=== PATIENT | female | born 1955 | race Caucasian/White ===

== ENCOUNTER 2022-11-11 02:37 | Emergency (ER) | payer OTHER, SELFPAY ==
--- NOTE | ~2022-11-11 | XR_ITS ---
Right Shoulder Technique: AP and axillary views were obtained. Clinical History: Pain Findings: No fracture or dislocation is seen. Osseous alignment is anatomic. There is mild AC joint d egenerative change. Glenohumeral joint is intact. Soft tissues are unremarkable. Impression: No fracture or dislocation. Mild AC joint degenerative change. Reviewed, dictated and finalized at location . Impression: No fracture or dislocation. Mild AC joint degenerative change.
--- NOTE | ~2022-11-11 | XR_ITS ---
Right Hand Technique: PA, oblique, and lateral views were obtained. Clinical History: Pain Findings: No acute fracture or dislocation is seen. Osseous alignment is anatomic. Joint spaces are p reserved. Soft tissues are unremarkable. Impression: Unremarkable right hand. Reviewed, dictated and finalized at location M. Impression: Unremarkable right hand.
--- NOTE | ~2022-11-11 | CT_ITS ---
CT Facial Bones and Cervical Spine Clinical Indication: Trauma Technique: Contiguous axial scans were obtained through the facial bones and cervical spine followed by coronal and sagittal reconstructions. Dose reduction technique was used on this scan by utilizing automated exposure control and iterative reconstruction technique. The dose-length product (DLP) was 183.49 mGy-cm. Findings: CT facial bones: Right nasal bone fracture present, minimally displaced. There is also probable focal angulated fracture of the vomer. The visualized paranasal sinuses are clear. Intraorbital soft tissu es appear normal. CT cervical spine: No acute fracture or subluxation evident. There is moderate degenerative disc narr owing from C3 through C7, with associated uncovertebral degenerative changes throughout these levels. There is probable mild canal stenosis at C3-C4. There is probable multilevel mild neural foraminal n arrowing with minimal facet joint degenerative changes present. No prevertebral soft tissue swelling. Impression: Minimally displaced fractures of the right nasal bone and vomer. No fracture or subluxation of the cervical spine. [id number] degenerative spondylosis. Reviewed, dictated and finalized at [facility]. Impression: Minimally displaced fractures of the right nasal bone and vomer. No fracture or subluxation of the cervical spine. [id number] degenerative spondylosis.
--- NOTE | ~2022-11-11 | CT_ITS ---
CT head without contrast Indication: Head injury COMPARISON: 07/29/2017 Technique: Serial scans were obtained through the brain without the administration of contrast. Dose reduction technique was used on this scan by utilizing automated exposure control and iterative recon struction technique. The dose-length product (DLP) was 756.67 mGy-cm. Findings: There is no evidence of intracranial hemorrhage, mass lesion, or acute infarct. 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 The ventricles and subarachnoid space s are dilated, consistent with minimal atrophy. Low attenuation regions are seen within the perivent ricular white matter bilaterally, likely representing changes from chronic microvascular ischemic dis ease. There is no evidence of edema, mass effect or midline shift. The visualized paranasal sinuses and mastoid air cells are clear. Impression: No intracranial hemorrhage, mass, or acute infarct. Stable chronic encephalomalacia in the anterior right temporal lobe. Atrophy and chronic white matter changes, as above. Reviewed, dictated and finalized at location . Impression: No intracranial hemorrhage, mass, or acute infarct. Stable chronic encephalomalacia in the anterior right temporal lobe. Atrophy and chronic white matter changes, as above.
[2022-11-11 02:39] VITALS: BP 172/83; PULSE 78; RESP 16; TEMP 36.3; O2SAT 100
--- NOTE | 2022-11-11 03:22 | ED.GENADULT ---
HPI - General Adult General Chief complaint: Fall Stated complaint: fall Time Seen by Provider: 11/11/22 02:58 History of Present Illness HPI narrative: Patient is a 67-year-old female who presents emergency department with chief complaint of nose injury. Patient reports that she tripped over her 100 pounds down and landed on her face. Patient also reports she has pain in her right shoulder and her right hand. Related Data Allergies Allergy/AdvReac Type Severity Reaction Status Date / Time No Known Allergies Allergy Unknown Verified 03/27/17 09:43 Review of Systems Review of Systems: A 10 system review of systems was completed on the patient and is negative except for what is stated in the HPI. Nursing and ancillary documentation was reviewed. Exam Narrative: GENERAL: Well-appearing, well-nourished, and in no acute distress. HEAD: Normocephalic, atraumatic. EYES: PERRLA and EOMI. ENT: Nares clear, no rhinorrhea or epistaxis. Mucous membranes moist. Bruising around nose NECK: Supple. CHEST: Clear to auscultation. No respiratory distress. HEART: Regular rate and rhythm. No murmur heard. Normal peripheral pulses. ABDOMEN: Soft, nontender, nondistended, normal active bowel sounds. EXTREMITIES: Normal range of motion. No edema. Mild tenderness to the dorsum of the right hand and mild tenderness in the right shoulder SKIN: Warm, dry, no rash. NEURO: No focal deficits. Alert and oriented x3. PSYCH: Normal mood and affect. Course Vital Signs Vital signs: Vital Signs Temperature 36.3 C L 11/11/22 02:39 Pulse Rate 78 11/11/22 02:39 Respiratory Rate 16 11/11/22 02:39 Blood Pressure 172/83 H 11/11/22 02:39 Pulse Oximetry 100 11/11/22 02:39 Oxygen Delivery Room Air 11/11/22 02:39 Temperature 36.3 C L 11/11/22 02:39 Pulse Rate 78 11/11/22 02:39 Respiratory Rate 16 11/11/22 02:39 Blood Pressure 172/83 H 11/11/22 02:39 Pulse Oximetry 100 11/11/22 02:39 Oxygen Delivery Room Air 11/11/22 02:39 Medical Decision Making [facility] Narrative Medical decision making narrative: Differential diagnosis includes intercranial hemorrhage, nasal bone fracture, facial trauma, cervical spine fracture Plan: X-rays were obtained of the patient's hand and shoulder that showed no evidence of fracture CT head CT facial bones and CT C-spine showed no acute intercranial pathology there is a minimally displaced nasal bone fracture Vital Signs Vital Signs: Vital Signs Temperature 36.3 C L 11/11/22 02:39 Pulse Rate 78 11/11/22 02:39 Respiratory Rate 16 11/11/22 02:39 Blood Pressure 172/83 H 11/11/22 02:39 Pulse Oximetry 100 11/11/22 02:39 Oxygen Delivery Room Air 11/11/22 02:39 Temperature 36.3 C L 11/11/22 02:39 Pulse Rate 78 11/11/22 02:39 Respiratory Rate 16 11/11/22 02:39 Blood Pressure 172/83 H 11/11/22 02:39 Pulse Oximetry 100 11/11/22 02:39 Oxygen Delivery Room Air 11/11/22 02:39 Discharge Plan Discharge Clinical Impression: Closed fracture nasal bone, Head injury, Contusion of right shoulder, Contusion of hand, right Patient Disposition: Home, Self-Care Condition: Stable Instructions: Antibiotic Form, Nasal Fracture (ED), Head Injury (ED), Contusion in Adults (ED) Follow-up/Referrals: Denton Diaz MD [Physician] - [facility],Adalberto Herrmann MD [Primary Care Provider] - Time of Disposition: 05:44
[2022-11-11 05:45] VITALS: BP 150/77; PULSE 65; RESP 16; O2SAT 99
== END 2022-11-11 05:45 | disposition home or self-care (01) ==
PROVIDERS: Emergency Provider Emergency Medicine; PCP Family Medicine
DX: S02.2XXA Fracture of nasal bones, initial encounter for closed fracture (principal); S40.011A Contusion of right shoulder, initial encounter; S60.221A Contusion of right hand, initial encounter; M47.812 Spondylosis without myelopathy or radiculopathy, cervical region; W01.0XXA Fall on same level from slipping, tripping and stumbling without subsequent striking against object, initial encounter
CPT/HCPCS: 70450; 70486; 72125; 73030; 73130; 99284

== ENCOUNTER → 2024-05-20 11:42 | Outpatient (REF) | payer OTHER, SELFPAY ==
--- OUTSIDE RECORDS SUMMARY | 2024-05-20 12:24 | XMS_ITS | Clinical Summary ---
Author Organization [facility] Address [address] [place] [address] Care Team Providers Care Oyster Planter Name Role Phone Adalberto Wood MD Primary Care Provider [phone] Allergies No known active allergies Medications multivitamin capsule Take 1 capsule by mouth daily Calcium 300 mg + Vitamin D 1000 Total 1000+400 international units = 1400 international units daily Active denosumab (PROLIA) 60 mg/mL syringe Inject under the skin once Active MAGNESIUM CHLORIDE ORAL Take by mouth Ac tive cholecalcifero l (VITAMIN D-3) 400 unit capsule Active ALPRAZolam (XANAX) 0.5 mg tablet TAKE 1 TABLET(0.5 MG) BY MOUTH EVERY 8 HOURS NEEDED FOR ANXIETY 30 tablet 2 3 Active rosuvastatin (CRESTOR) 10 mg tablet TAKE 1 TABLET(10 MG) BY MOUTH DAILY 90 tablet 1 4 Active celecoxib (CeleBREX) 200 mg capsule TAKE 1 CAPSULE(200 MG) BY MOUTH TWICE DAILY 60 capsule 1 4 Active Active Problems Problem Noted Date Diagnosed Date Medicare annual wellness visit, subsequent 02/27 Chronic bilateral low back pain 11/12/2018 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 Surgical incision healing well. She has no back pain. - Continue vancomycin and cefepime to complete 6 weeks of therapy. FIRM STOP on 12/13/18 as she will have completed 6 weeks of therapy at that time. PICC line to be pulled when IV antibiotics are complete - Discussed with patient that she will not require tower operator oral antibiotic suppression as her remaining hardware did not appear to be involved. She will monitor closely for signs/symptoms of infection when antibiotics are discontinued and report to ID if she has any issues - Discussed the rational for treatment, culture results, risk of recurrent infection, signs/symptoms of recurrent infection, and to contact ID with concerns Assessment & Plan (11/05/2018 1:09 PM CDT): 63 yo female with h/o several spinal surgeries and meningioma p/w spinal hardware infection s/p I+D and hardware removal.She is on broad spectrum antibiotics with vancomycin and cefepime while awaiting culture results. Cx currently NGTD. VT therapeutic. Discussion with surgeon revealed that HW that was involved in the infection was removed. He thought the HW in the lower spine was not involved. Recommendations: - continue vanc/cefepime for culture negative infection. Given that her cr clearance is 52.9, would decrease her cefepime dose to 1g IV q 12 hours (done) - pt has been afebrile, so okay to place picc line as she will need fci IV abx x 6 weeks. Per discussion with the surgery team, no plan for tower operator suppression at this time. - cbc w/diff, cmp and vanc trough 2x per week. - ID will formally sign off but continue to follow the pt peripherally while in house. - Please call with any questions or concerns. - See plan of care note dated 11/05/18 for detailed recommendations. Age-related osteoporosis wit hout current pathological fracture 05/31/2018 History of meningioma 03/19/2018 Posterior vitreous detachment of left eye 2017 Osteoporosis 11/17/2016 Spinal meningioma 09/06/2012 Osteoarthritis of thoracic spine with myelopathy 08/20/2012 Resolved Problems Problem Noted Date Diagnosed Date Resolved Date COVID-19 virus infection 07/25/202201/2023 skilled nursing current use of antibiotics 11/30/2018 12/30/2020 Assessment & Plan (11/30/2018 2:07 PM CDT): - Weekly CBC and LFTs; twice weekly vanc trough and BMP while on IV antibiotics - Discussed with patient the side effects of tower operator antibiotics and monitoring parameters. - PICC line care continued; removed PICC when IV antibiotics are complete. Tingling of skin 08/03/2012 11/17/2022 Encounters Date Type Department Care Team Description 05/13/2024 2:15 PM DRY CLEANING MACHINE OPERATOR HELPER - 05/13/2024 11:59 PM DRY CLEANING MACHINE OPERATOR HELPER Hospital Encounter [facility] [address] [address] Abnormal mammogram of left breast Discharge Disposition: Discharge to home or self care 05/13/2024 2:15 PM DRY CLEANING MACHINE OPERATOR HELPER - 05/13/2024 11:59 PM DRY CLEANING MACHINE OPERATOR HELPER Hospital Encounter [facility] [address] [address] Abnormal mammogram of left breast Discharge Disposition: Discharge to home or self care 05/08/2024 Telephone [facility] at [address] [phone] Adalberto Wood MD [facility] 05/07/2024 11:15 AM DRY CLEANING MACHINE OPERATOR HELPER - 05/07/2024 11:59 PM [facility] Hospital Encounter [facility] [address] [place] [address] Screening mammogram, encounter for Discharge Disposition: Discharge to home or self care 03/29/2024 10:45 AM DRY CLEANING MACHINE OPERATOR HELPER Office Visit [facility] [address] [place] [phone] Rajiv Chicas DO 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 (Primary Dx); Acute pain of left shoulder; Abnormal x-ray; Other closed fracture of shaft of left humerus with routine healing, subsequent encounter 03/29/2024 Telephone [facility] at [address] [phone] Adalberto Wood MD Referral Request 03/06/2024 2:00 PM DRY CLEANING MACHINE OPERATOR HELPER - 03/06/2024 11:59 PM DRY CLEANING MACHINE OPERATOR HELPER Hospital Encounter [address] [address] Age-related osteoporosis without current pathological fracture (Primary Dx) Discharge Disposition: Discharge to home or self care 03/06/2024 Orders Only [address] [address] Berenice Almanza, RN 03/01/2024 Telephone [facility] at [address] [phone] Adalberto Wood MD Test Results 02/28/2024 10:45 AM DRY CLEANING MACHINE OPERATOR HELPER Office Visit [facility] at [address] [phone] Adalberto Wood MD Medicare annual wellness visit, subsequent (Primary Dx); Mixed hyperlipidemia; Colon cancer screening 02/27/2024 Orders Only [address] [address] Berenice Almanza, RAFI 02/27/2024 Telephone [facility] at [address] [place] [phone] Adalberto Wood MD Medical Question/Miscellaneou s 02/23/2024 Telephone [facility] at [address] [phone] Adalberto Wood MD Test Results 02/22/2024 Orders Only [address] [address] Berenice Almanza, RN 02/20/2024 2:37 PM DRY CLEANING MACHINE OPERATOR HELPER - 02/20/2024 11:59 PM DRY CLEANING MACHINE OPERATOR HELPER Hospital Encounter [facility] [address] [place] [address] Acute pain of left shoulder Discharge Disposition: Discharge to home or self care 02/20/2024 1:30 PM DRY CLEANING MACHINE OPERATOR HELPER Office Visit [facility] at [address] [place] [address] Adalberto Wood MD Acute pain of left shoulder (Primary Dx); Fall, initial encounter; Postmenopausal from Last 3 Months Immunizations Name Administration Dates Next Due COVID-19 MRNA (MODERNA) .5 M L (50 MCG) VACCINE (12 YEARS AND UP) 12/18/2023 Influenza, Quad, Adjuvantate d, Intramuscular 12/26/2022,12/24/2019 Influenza, Quadrivalent, Hig h Dose, Preservative Free, Intrr 12/17/2021,12/31/2020 Influenza, Quadrivalent, Spl it, Preservative Free, Intramuscular 01/08/2014 Influenza, Trivalent, Cell Culture-based MDCK, Preservative Free, Antibiotic Free, Intramuscular 03/14/2013 Influenza, Trivalent, High D ose, Split, Preservative Free, Intramuscular 12/18/2023,01/02/2019,01/02/2019 Influenza, Trivalent, IM (MDV) 03/19/2018,2016 Influenza, Trivalent, Preser vative Free, Intramuscular 12/24/2019,01/23/2016,02/13/2015,01/08,01/08/2013 Influenza, Unspecified 02/20/2024,2022,01/08/2022,01/02 Pneumococcal Conjugate Pcv20 12/18/2023 RSV, Bivalent, Protein Subun it Rsvpref, Diluent (Abrysvo) 12/26/2022 Sars-cov-2 Covid-19 Mrna, Bi valent, Original/omicron Ba.1 12/26/2022 Tdap 03/19/2018 ZOSTER Recombinant 02/25/2023,12/26/2022 Surgical History Surgery Date Site/Laterality Comments PUNCTURE CERVICAL W INJECTION 08/07/2012 N/A FOOT SURGERY HAND SURGERY BACK SURGERY x5 SPINE SURGERY 1988 Medical History Medical History Date Comments Osteoporosis Pneumonia Family History Medical History Relation Name Comments Cancer Brother Selvin Cancer - (Added by TW Conv) Cancer Sister Hazel Anesthesia problems Neg Hx Breast cancer Neg Hx Hip fracture Neg Hx Osteoporosis Neg Hx Scoliosis Neg Hx Relation Name Status Comments Brother Selvin Mother Sister Hazel Social History Tobacco Use Types Packs/Day Years Used Date Smoking Tobacco: Former Cigarettes 1 4 0 04/10/1974 - 1978 Smokeless Tobacco: Never Alcohol Use Standard Drinks/Week Comments Yes 0 (1 standard drink = 0.6 oz pur e alcohol) ONCE A WEEK AUDIT-C Answer Date Recorded Q1: How often do you have a drink containing alc ohol? Monthly or less 02/20/2024 Q2: How many drinks containi ng alcohol do you have on a typical day when you are drinking? 1 or 2 02/20/2024 Frequency of Binge Drinking Not on file 02/08 PHQ-2 Answer Date Recorded PHQ-2 Total Score (If total score is 3 or more points, staff should administer the PHQ-9) 0 02/21/2024 Comments No Sex and Gender Information Value Date Recorded Sex Assigned at Not on file Legal Sex Female 7:37 PM DRY CLEANING MACHINE OPERATOR HELPER Gender Identity Female 05/15/2021 12:01 AM DRY CLEANING MACHINE OPERATOR HELPER Sexual Orientation Not on file Occupation Industry Job Start Date Job End Date SELF EMPLOYED Not on file Not on file Not on file Obstetrics History Para Term AB IAB SAB Ectopic Multiple Livin g Live Births 0 0 0 0 0 0 0 0 0 0 0 Last Filed Vital Signs Vital Sign Reading Time Taken Comments Blood Pressure 140/81 03/06/2024 2:10 PM DRY CLEANING MACHINE OPERATOR HELPER Pulse 77 03/06/2024 2:10 PM DRY CLEANING MACHINE OPERATOR HELPER Temperature 36.3 C (97.3 F) 03/06/2024 2:10 PM DRY CLEANING MACHINE OPERATOR HELPER Respiratory Rate 18 03/06/2024 2:10 PM DRY CLEANING MACHINE OPERATOR HELPER Oxygen Saturation 100% 03/06/2024 2:10 PM DRY CLEANING MACHINE OPERATOR HELPER Inhaled Oxygen Concentration - - Weight 52.8 kg (116 lb 8 oz) 02/28/2024 10:51 AM DRY CLEANING MACHINE OPERATOR HELPER Height 155.6 cm (5' 1.25 ) 02/28/2024 10:[address] Body Mass Index 21.83 02/28/2024 10:51 AM DRY CLEANING MACHINE OPERATOR HELPER Plan of Treatment Health Maintenance Due Date Last Done Comments Colon Cancer Screening-Colonoscopy 1955 Hepatitis C Screening 1955 Hepatitis B Screening 1971 Osteoporosis Screening-Bone Density Scan 01/25/2025 01/25/2023, 01/12/2022, 01/06/2021, Additional history exists Depression Screening 02/27/2025 02/28/2024, 06/23/2022, 12/30/2020 Fall Risk Assessment 02/27/2025 02/28/2024, 06/23/2022, 12/30/2020 Well Visit 65+ 02/27/2025 02/28/2024, 06/08, 12/30/2020 Breast Cancer Screening-Mammogram 05/07/2025 025, 08/23/2021 DTaP/Tdap/Td Vaccine (2 - Td or Tdap) 03/19/2028 03/19/2018 Zoster Vaccine Completed 02/25/2023, 12/26/2022 Covid-19 Vaccine Completed 12/18/2023, , 12/26/2022, Additional history exists Pneumococcal vaccine 65+ Completed 12/18/2023 Influenza Vaccine Completed 02/20/2024, , 12/26/2022, Additional history exists Medical Devices Implanted Type Area Medical Insurance Claims Specialist Device Identifier Shelf Expiration Date Model / Serial / Lot Forearm Hardware Forearm Spinal Hardware Thoracic-Lum bar Spine L3-L5 Fusion- [id number] Implanted:03/10 (Quantity not on file) Lumbar-Sacra l Spine Procedures Procedure Name Priority Date/Time Associated Diagnosis Comments US BREAST LEFT LIMITED Schedule Routine, Read Routine (OP Routine) 05/13/2024 3:01 PM DRY CLEANING MACHINE OPERATOR HELPER Abnormal mammogram of left breast DIAGNOSTIC MAMMOGRAM LEFT W ONIEL Schedule Routine, Read Routine (OP Routine) 05/13/2024 2:28 PM DRY CLEANING MACHINE OPERATOR HELPER Abnormal mammogram of left breast SCREENING MAMMOGRAM BILATERAL W ONIEL Schedule Routine, Read Routine (OP Routine) 05/07/2024 11:25 AM DRY CLEANING MACHINE OPERATOR HELPER Screening mammogram, encounter for LIPID PANEL Routine 02/29/2024 10:12 AM DRY CLEANING MACHINE OPERATOR HELPER Mixed hyperlipidemia COMPREHENSIVE METABOLIC PANEL Routine 02/29/2024 10:12 AM DRY CLEANING MACHINE OPERATOR HELPER Mixed hyperlipidemia CBC WITH AUTO DIFFERENTIAL Routine 02/29/2024 10:12 AM DRY CLEANING MACHINE OPERATOR HELPER Mixed hyperlipidemia XR SHOULDER LEFT 2 OR MORE VIEWS Schedule Routine, Read Routine (OP Routine) 02/20/2024 2:42 PM DRY CLEANING MACHINE OPERATOR HELPER Acute pain of left shoulder DEXA TBS AXIAL SKELETON BONE DENSITY 1 OR MORE SITES Schedule Routine, Read Routine (OP Routine) 01/25/2023 11:30 AM CDT Age-related osteoporosis without current pathological fracture from Last 3 Months or Most Recently Relevant to Health Maintenance Results * US Breast Left Limited (05/13/2024 3:01 PM DRY CLEANING MACHINE OPERATOR HELPER) Anatomical Region Laterality Modality Breast Left Ultrasound 05/13/2024 5:11 PM DRY CLEANING MACHINE OPERATOR HELPER Impressions 05/13/2024 5:11 PM DRY CLEANING MACHINE OPERATOR HELPER The questioned area on the mammogram very likely relates to the dilated ducts seen sonographically. Six-month follow-up left mammogram with possible left breast ultrasound is recommended. OVERALL FINAL ASSESSMENT: BI-RADS 3 - Probably benign findings. Short-term follow-up is recommended. Electronically signed by: Patricia Carlisle M.D. Narrative 05/13/2024 5:11 PM DRY CLEANING MACHINE OPERATOR HELPER EXAMINATION: LEFT DIGITAL DIAGNOSTIC MAMMOGRAM AND DIGITAL BREAST TOMOSYNTHESIS; LEFT BREAST SONOGRAM HISTORY: Additional imaging COMPARISON: May 07, 2024 TECHNIQUE: Full field digital mammographic views of the left breast(s) were performed, including computer aided detection (CAD) and digital breast tomosynthesis (DBT). Directed ultrasound evaluation of the left breast(s) was performed. BREAST PARENCHYMAL COMPOSITION: The breasts are heterogeneously dense, which may obscure small masses. MAMMOGRAM FINDINGS: There is a focal asymmetry at 3-4 o'clock in the mid to posterior depth. It has tapered ends anteriorly and posteriorly. There are other similar appearing areas/structures elsewhere in the breast. No suspicious calcifications are seen. There is no unexplained architectural distortion. There is no skin thickening seen. There are no mammographically abnormal lymph nodes seen in the axillae or elsewhere. ULTRASOUND FINDINGS: Sonography through the lateral left breast demonstrates no cystic or solid masses. There is significant ductal ectasia throughout. This corresponds to the mammographic appearance of ductal ectasia. us Adalberto Wood MD IMG MAMMO PROCEDURES Final Re sult * Diagnostic Mammogram Left W Oniel (05/13/2024 2:28 PM DRY CLEANING MACHINE OPERATOR HELPER) Anatomical Region Laterality Modality Breast Left Mammography 05/13/2024 5:11 PM DRY CLEANING MACHINE OPERATOR HELPER Impressions 05/13/2024 5:11 PM DRY CLEANING MACHINE OPERATOR HELPER The questioned area on the mammogram very likely relates to the dilated ducts seen sonographically. Six-month follow-up left mammogram with possible left breast ultrasound is recommended. OVERALL FINAL ASSESSMENT: BI-RADS 3 - Probably benign findings. Short-term follow-up is recommended. Electronically signed by: Patricia Carlisle M.D. Narrative 05/13/2024 5:11 PM DRY CLEANING MACHINE OPERATOR HELPER EXAMINATION: LEFT DIGITAL DIAGNOSTIC MAMMOGRAM AND DIGITAL BREAST TOMOSYNTHESIS; LEFT BREAST SONOGRAM HISTORY: Additional imaging COMPARISON: May 07, 2024 TECHNIQUE: Full field digital mammographic views of the left breast(s) were performed, including computer aided detection (CAD) and digital breast tomosynthesis (DBT). Directed ultrasound evaluation of the left breast(s) was performed. BREAST PARENCHYMAL COMPOSITION: The breasts are heterogeneously dense, which may obscure small masses. MAMMOGRAM FINDINGS: There is a focal asymmetry at 3-4 o'clock in the mid to posterior depth. It has tapered ends anteriorly and posteriorly. There are other similar appearing areas/structures elsewhere in the breast. No suspicious calcifications are seen. There is no unexplained architectural distortion. There is no skin thickening seen. There are no mammographically abnormal lymph nodes seen in the axillae or elsewhere. ULTRASOUND FINDINGS: Sonography through the lateral left breast demonstrates no cystic or solid masses. There is significant ductal ectasia throughout. This corresponds to the mammographic appearance of ductal ectasia. Adalberto Wood MD [facility] MAMMO PROCEDURES Final Re sult * (ABNORMAL) Screening Mammogram Bilateral W Oniel (05/07/2024 11:25 AM DRY CLEANING MACHINE OPERATOR HELPER) Anatomical Region Laterality Modality Breast Bilateral Mammography Impressions 05/07/2024 12:07 PM DRY CLEANING MACHINE OPERATOR HELPER BI-RADS ATLAS category (overall): 0 - Incomplete: Needs Additional Imaging Evaluation 1. Indeterminate left breast finding as above. Further evaluation with diagnostic left mammography and possible diagnostic left breast ultrasound is recommended. 2. No mammographic evidence of malignancy in the right breast. Routine screening mammography of the right breast is recommended in 1 year. The patient has been or will be contacted. Narrative 05/07/2024 12:07 PM DRY CLEANING MACHINE OPERATOR HELPER Screening Mammogram Bilateral W Oniel: 05/07/24 The study was acquired using full field digital technology and interpreted from soft copy. 2D digital mammographic views, as well as 3D digital tomosynthesis were performed in the CC and MLO projections. CLINICAL: Screening mammogram, encounter for. No relevant medical history has been documented for this patient. History of breast cancer in Neg Hx. COMPARISON: New Baseline Screening Mammography. No prior mammography is available for comparison. BREAST TISSUE: The breasts are heterogeneously dense, which may obscure small masses. FINDINGS: There are benign calcifications in both breasts. There is a focal asymmetry at the 4 o'clock position of the left breast posteriorly. No other suspicious masses, suspicious calcifications, or other suspicious findings are seen within either breast. us Adalberto Wood MD IMG MAMMO PROCEDURES Final Re sult * (ABNORMAL) CBC with auto differential (02/29/2024 10:12 AM DRY CLEANING MACHINE OPERATOR HELPER) WBC 7.7 3.8 - 10.8 Thousand/u L [facility] RBC, POC 4.15 3.80 - 5.10 Million/uL [facility] Hgb 12.8 11.7 - 15.5 g/dL [facility] Hct 40.2 35.0 - 45.0 % [facility] MCV 96.9 80.0 - 100.0 fL [facility] MCH 30.8 27.0 - 33.0 pg [facility] MCHC 31.8(L) 32.0 - 36.0 g/dL [facility] Comment: For adults, a slight decrease in the calculated MCHC value (in the range of 30 to 32 g/dL) is most likely not clinically significant; however, it should be interpreted with caution in correlation with other red cell parameters and the patient's clinical condition. Rdw 12.4 11.0 - 15.0 % [facility] Platelets 211 140 - 400 Thousand/u L [facility] MPV 9.9 7.5 - 12.5 fL [facility] Neutrophils, abs 5,213 1,500 - 7,800 cells/uL [facility] Lymphocytes, abs 1,679 850 - 3,900 cells/uL [facility] Monocyte abs 647 200 - 950 cells/uL [facility] Eosinophils, abs 100 15 - 500 cells/uL [facility] Basophils, abs 62 0 - 200 cells/uL [facility] Neutrophils 67.7 % [facility] Lymphocyte pct 21.8 % [facility] Monocytes 8.4 % [facility] Eosinophils 1.3 % [facility] Basophils 0.8 % [facility] Blood 02/29/2024 10:1 2 AM DRY CLEANING MACHINE OPERATOR HELPER 02/29/2024 10:13 AM DRY CLEANING MACHINE OPERATOR HELPER Adalberto Wood MD LAB BLOOD ORDERABLES Final Re sult [facility] [address] [place] [address] * Lipid panel (02/29/2024 10:12 AM DRY CLEANING MACHINE OPERATOR HELPER) Cholesterol 193 <200 mg/dL [facility] HDL 80 > OR = 50 mg/dL [facility] Triglycerides 93 <150 mg/dL [facility] LDL 94 mg/dL (calc) [facility] Comment: Reference range: <100 Desirable range <100 mg/dL for primary prevention; <70 mg/dL for patients with CHD or diabetic patients with > or = 2 CHD risk factors. LDL-C is now calculated using the Beryl calculation, which is a validated novel method providing better accuracy than the Friedewald equation in the estimation of LDL-C. Jomar LITTLE et al. LANA. 2013;310(19): 6428-6301 (http://education.Naroomi.Specle/faq/LWO153) Chol/HDL ratio 2.4 <5.0 (calc) [facility] Non-HDL, (LDL+VLDL) 113 <130 mg/dL (calc) [facility] Comment: For patients with diabetes plus 1 major ASCVD risk factor, treating to a non-HDL-C goal of <100 mg/dL (LDL-C of <70 mg/dL) is considered a therapeutic option. Blood 02/29/2024 10:1 2 AM DRY CLEANING MACHINE OPERATOR HELPER 02/29/2024 10:13 AM DRY CLEANING MACHINE OPERATOR HELPER us Adalberto Wood MD LAB BLOOD ORDERABLES Final Re sult [facility] [address] [place] [address] * (ABNORMAL) Comprehensive metabolic panel (02/29/2024 10:12 AM DRY CLEANING MACHINE OPERATOR HELPER) Glucose 94 65 - 99 mg/dL [facility] Comment: Fasting reference interval BUN 20 7 - 25 mg/dL [facility] Creatinine 0.73 0.60 - 1.00 mg/dL [facility] eGFR 88 > OR = 60 mL/min/1.7 3m2 [facility] BUN/creat ratio SEE NOTE: 6 - 22 (calc) [facility] Comment: Not Reported: BUN and Creatinine are within reference range. Sodium 139 135 - 146 mmol/L [facility] Potassium, pl 4.7 3.5 - 5.3 mmol/L [facility] Chloride 100 98 - 110 mmol/L [facility] CO2 31 20 - 32 mmol/L [facility] Calcium 10.5(H) 8.6 - 10.4 mg/dL [facility] Protein, sr 7.5 6.1 - 8.1 g/dL [facility] Albumin 4.6 3.6 - 5.1 g/dL [facility] GLOBULIN 2.9 1.9 - 3.7 g/dL (calc) [facility] Alb/glob ratio 1.6 1.0 - 2.5 (calc) [facility] Bilirubin, total 0.5 0.2 - 1.2 mg/dL [facility] Alk phos 36(L) 37 - 153 U/L [facility] AST 20 10 - 35 U/L [facility] ALT (SGPT) 16 6 - 29 U/L [facility] Blood 02/29/2024 10:1 2 AM DRY CLEANING MACHINE OPERATOR HELPER 02/29/2024 10:13 AM DRY CLEANING MACHINE OPERATOR HELPER us Adalberto Wood MD LAB BLOOD ORDERABLES Final Re sult [facility] [id number] [place] [address] * XR Shoulder Left 2 or More Views (02/20/2024 2:42 PM DRY CLEANING MACHINE OPERATOR HELPER) Anatomical Region Laterality Modality Upper Extremities, Shoulder Left Comp uted Radiography 02/23/2024 1:41 PM DRY CLEANING MACHINE OPERATOR HELPER Narrative 02/23/2024 1:43 PM DRY CLEANING MACHINE OPERATOR HELPER EXAM DESCRIPTION: XR SHOULDER LEFT 2 OR MORE VIEWS REASON FOR STUDY: pain General shoulder pain since dog pulled arm and pt fell 02-19-24 FINDINGS: Four views submitted without comparison. Old healed, displaced left humeral midshaft fracture is present. There is mild glenohumeral and acromioclavicular joint osteoarthritis. There is mild superior subluxation of the humeral head. Old granulomatous disease is noted. IMPRESSION: Old healed, displaced left humeral midshaft fracture. Mild left glenohumeral and acromioclavicular joint osteoarthritis. Mild superior subluxation of the humeral head, which can be associated with rotator cuff pathology. THIS IS AN ELECTRONICALLY VERIFIED FINAL REPORT 02/23/2024 1:43 PM - Electronically signed by Jonah Reyes M.D. T: Report ID: [id number] Reading Location: [id number] Procedure Note Jonah Reyes MD - 02/23/2024 EXAM DESCRIPTION: XR SHOULDER LEFT 2 OR MORE VIEWS REASON FOR STUDY: pain General shoulder pain since dog pulled arm and pt fell 02-19-24 FINDINGS: Four views submitted without comparison. Old healed, displaced left humeral midshaft fracture is present. There is mild glenohumeral and acromioclavicular joint osteoarthritis. There ismild superior subluxation of the humeral head. Old granulomatous disease isnoted. IMPRESSION: Old healed, displaced left humeral midshaft fracture. Mild left glenohumeral and acromioclavicular joint osteoarthritis. Mild superior subluxation of the humeral head, which can be associatedwith rotator cuff pathology. THIS IS AN ELECTRONICALLY VERIFIED FINAL REPORT 02/23/2024 1:43 PM - Electronically signed by Jonah Reyes M.D. T: Report ID: [id number] Reading Location: [id number] Adalberto Wood MD IMG XR PROCEDURES Final Resul t * Dexa TBS Axial Skeleton Bone Density 1 or more sites (01/25/2023 11:30 AM CDT) Anatomical Region Laterality Modality Wrist, Body N/A Radiographic Justina ging Narrative 01/26/2023 9:50 AM CDT Patient Name: Dora Hogan Date of : 1955 Date of scan: 01/25/2023 Bone mineral density was performed on a HoloModusly Discovery Densitometer. Based on machine cross-calibration and precision studies the least significant changes of this densitometer is 0.024 g/cm2 at the spine, 0.020 g/cm2 at the total proximal femur, and 0.014g/cm2 at the forearm. HISTORY: This is a 67 y.o. postmenopausal female with a history of osteoporosis. She reports that she quit smoking about 44 years ago. Her smoking use included cigarettes. She started smoking about 48 years ago. She smoked an average of 1 pack per day. She has never used smokeless tobacco. Currently on treatment with calcium, vitamin D, and denosumab (Prolia) and current complaint of arm pain, back pain, neck pain, and leg pain. INDICATIONS: Menopause status, treatment monitoring, history of prior wrist fracture, and history of osteoporosis. FINDINGS: BONE MINERAL DENSITY OF THE PROXIMAL FEMUR Bone Mineral Density (BMD) of the left hip total was found to be 0.690 gm/cm2. This corresponds to a T-score standard deviations from the mean of young adults of -2.1. Femoral neck is 0.684 gm/cm2 with a T-score (standard deviations from the mean of young adults) of -1.5. When compared to the previous study of 01/12/2022 there has been no significant changes in bone density. BONE MINERAL DENSITY OF THE FOREARM Bone Mineral density (BMD) of the right proximal 1/3 of the radius measures 0.489 gm/cm2. This corresponds to a T-score (standard deviations from the mean of young adults) of -3.4. When compared to the previous study of 01/12/2022 there has been no significant changes in bone density. A forearm bone density study was performed instead of a spine study because of presence of surgical hardware SUMMARY: Bone mineral density shows evidence of osteoporosis and marked increase risk of fracture. There has been no significant changes in bone density since previous measurement. The lumbar spine Trabecular Bone Score TBS was not obtained due to the bone mineral density of the spine not being acquired. ADDITIONAL COMMENTS: Postmenopausal Women and Men Over 50: Diagnostic criteria: Osteoporosis: BMD at or below -2.5 T-score; Osteopenia (low bone mass): BMD between -1.0 and -2.5 T-score. If the patient has a history of a fragility fracture, a fracture that occurred with trauma equivalent to a fall from a standing position or less, then the diagnosis is osteoporosis regardless of bone density. The history and data sections of the bone mineral density scan were prepared by Vandana Zhu (R)(CBDT) who is accredited by the International Society of Clinical Densitometry. The overall patient assessment and scan interpretation were performed by Kavita Armenta M.D. who is certified by the International Society of Clinical Densitometry. [id number] Kavita Armenta MD IMG DXA PROCEDURES Final Resu lt from Last 3 Months or Most Recently Relevant to Health Maintenance Insurance [facility] Advance Directives For more information, please contact: [phone] Documents on File Type Date Recorded Patient Senior Quality Control Technician Expl anation ADVANCE DIRECTIVE 12/31/2020 * Full Code (Latest Code Status on File) Date Activated Date Inactivated Comments 11/01/2018 2:32 PM 11/06/2018 8:28 PM Care Teams Oyster Planter Relationship Specialty Start Date End Date Adalberto Wood MD PCP - General Family Medicine 05/30/18
--- OUTSIDE RECORDS SUMMARY | 2024-05-20 12:24 | XMS_ITS | Encounter Summary ---
Author Organization [facility] Facility Care Team Providers Care Blogs Manager Name Role Phone Adalberto Wood MD Primary Care Provider [phone] Lorena Caputo RN Unavailable [phone] Sunita Maradiaga MA Unavailable [phone] Encounter Details Date Type Department Care Team (Latest Contact Info) Description 03/28/2018 Orders Only [facility] CLINCON[facility] ProviderEbony MD [address] [place] [id number] Social History Tobacco Use Types Packs/Day Years Used Date Smoking Tobacco: Former Smokeless Tobacco: Never Comments Unknown Sex and Gender Information Value Date Recorded Sex Assigned at Not on file Legal Sex Female 7:37 PM OUTSIDE MEDICAL SALES REPRESENTATIVE Gender Identity Female 05/15/2021 12:01 AM OUTSIDE MEDICAL SALES REPRESENTATIVE Sexual Orientation Not on file documented as of this encounter Plan of Treatment Not on file documented as of this encounter Procedures Procedure Name Priority Date/Time Associated Diagnosis Comments SCAN - LABS 03/29/2018 12:00 AM OUTSIDE MEDICAL SALES REPRESENTATIVE documented in this encounter Results * SCAN - LABS (03/29/2018 12:00 AM OUTSIDE MEDICAL SALES REPRESENTATIVE) Narrative 03/29/2018 12:00 AM OUTSIDE MEDICAL SALES REPRESENTATIVE Ordered by an unspecified provider. Historical Provider Final Res ult documented in this encounter Visit Diagnoses Not on filedocumented in this encounter Care Teams Blogs Manager Relationship Specialty Start Date End Date Adalberto Wood MD PCP - General Family Medicine 05/30/18 Lorena Caputo, RN Brim Stretcher 11/07/18 11/07/18 Sunita Maradiaga MA [address] [place] [address] [address] [place] [id number] ACO Care Last Model Department Supervisor 11/14/22 11/14/22 documented as of this encounter
--- OUTSIDE RECORDS SUMMARY | 2024-05-20 12:24 | XMS_ITS | Encounter Summary ---
Author Organization [facility] Care Team Providers Care Machine Designer Name Role Phone Adalberto Wood MD Primary Care Provider [phone] Lorena Caputo RN Unavailable [phone] Sunita Maradiaga MA Unavailable [phone] Encounter Details Date Type Department Care Team (Latest Contact Info) Description 03/19/2018 Orders Only [facility] CLINCONV ProviderEbony MD [address] [employer], [place] [id number] Social History Tobacco Use Types Packs/Day Years Used Date Smoking Tobacco: Former Smokeless Tobacco: Never Comments Unknown Sex and Gender Information Value Date Recorded Sex Assigned at Not on file Legal Sex Female 7:37 PM HEAD OF MATHEMATICS Gender Identity Female 05/15/2021 12:01 AM HEAD OF MATHEMATICS Sexual Orientation Not on file documented as of this encounter Plan of Treatment Not on file documented as of this encounter Procedures Procedure Name Priority Date/Time Associated Diagnosis Comments PROCEDURE - RESULT 03/19/2018 12 :00 AM HEAD OF MATHEMATICS CARDIOLOGY REPORT 03/19/2018 12: 00 AM HEAD OF MATHEMATICS documented in this encounter Results * PROCEDURE - RESULT (03/19/2018 12:00 AM HEAD OF MATHEMATICS) Narrative 03/19/2018 12:00 AM HEAD OF MATHEMATICS Ordered by an unspecified provider. Historical Provider Final Res ult * CARDIOLOGY REPORT (03/19/2018 12:00 AM HEAD OF MATHEMATICS) Anatomical Region Laterality Modality Other Narrative 03/19/2018 12:00 AM HEAD OF MATHEMATICS Ordered by an unspecified provider. us Historical Provider [facility] GALEANO Final Result documented in this encounter Visit Diagnoses Not on filedocumented in this encounter Care Teams Machine Designer Relationship Specialty Start Date End Date Adalberto Wood MD PCP - General Family Medicine 05/30/18 Lorena Caputo, RN Print Developer 11/07/18 11/07/18 Sunita Maradiaga MA [address] [place] [address] [address] [place] [address] ACO Care Thread Roller 11/14/22 11/14/22 documented as of this encounter
--- OUTSIDE RECORDS SUMMARY | 2024-05-20 12:24 | XMS_ITS | Referral Summary ---
Author Organization [facility] Address [address] [place] [address] Care Team Providers Care Brass Bobbin Winder Name Role Phone Adalberto Wood MD Primary Care Provider [phone] Encounters Date Type Department Care Team Description 05/13/2024 2:15 PM NURSING STAFFING COORDINATOR - 05/13/2024 11:59 PM NURSING STAFFING COORDINATOR Hospital Encounter [facility] Medical Office [facility] 1 [facility] [address] [place] [address] [address] [place] [address] Abnormal mammogram of left breast Discharge Disposition: Discharge to home or self care 05/13/2024 2:15 PM NURSING STAFFING COORDINATOR - 05/13/2024 11:59 PM NURSING STAFFING COORDINATOR Hospital Encounter [facility] Medical Office [facility] [address] [place] [address] Abnormal mammogram of left breast Discharge Disposition: Discharge to home or self care 05/08/2024 Telephone [facility] Family [facility] [place] [address] [facility] [address] [place] [phone] Adalberto Wood MD breast center 05/07/2024 11:15 AM NURSING STAFFING COORDINATOR - 05/07/2024 11:59 PM NURSING STAFFING COORDINATOR Hospital Encounter [facility] Breast Imaging [address] [place] [address] Screening mammogram, encounter for Discharge Disposition: Discharge to home or self care 03/29/2024 10:45 AM NURSING STAFFING COORDINATOR Office Visit [facility] Orthopedics and Sports Medicine [address] [place] [address] [address] [place] [phone] Juan FranciscoDimajules, 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 (Primary Dx); Acute pain of left shoulder; Abnormal x-ray; Other closed fracture of shaft of left humerus with routine healing, subsequent encounter 03/29/2024 Telephone [facility] Family Medicine at [address] [address] Adalberto Wood MD Referral Request 03/06/2024 Orders Only [address] [address] Berenice Almanza, RN 03/06/2024 2:00 PM NURSING STAFFING COORDINATOR - 03/06/2024 11:59 PM NURSING STAFFING COORDINATOR Hospital Encounter [address] [address] Age-related osteoporosis without current pathological fracture (Primary Dx) Discharge Disposition: Discharge to home or self care 03/01/2024 Telephone [facility] Family Medicine at [address] [address] Adalberto Wood MD Test Results 02/28/2024 10:45 AM NURSING STAFFING COORDINATOR Office Visit [facility] at [address] [address] Adalberto Wood MD Medicare annual wellness visit, subsequent (Primary Dx); Mixed hyperlipidemia; Colon cancer screening 02/27/2024 Orders Only [address] [address] Berenice Almanza, RN 02/27/2024 Telephone [facility] Family Medicine at [address] [address] Adalberto Wood MD Medical Question/Miscellaneou s 02/23/2024 Telephone [facility] Family Medicine at [address] [address] Adalberto Wood MD Test Results 02/22/2024 Orders Only [facility] Infusion Center [address] [place] [address] Berenice Almanza RN 02/20/2024 2:37 PM NURSING STAFFING COORDINATOR - 02/20/2024 11:59 PM NURSING STAFFING COORDINATOR Hospital Encounter [facility] [address] [place] [address] Acute pain of left shoulder Discharge Disposition: Discharge to home or self care 02/20/2024 1:30 PM NURSING STAFFING COORDINATOR Office Visit [facility] Family Medicine at [address] [place] [phone] Adalberto Wood MD Acute pain of left shoulder (Primary Dx); Fall, initial encounter; Postmenopausal from Last 3 Months Allergies No known active allergies Medications multivitamin [...] with patient that she will not require ferry terminal supervisor oral antibiotic suppression as her remaining hardware [...] place picc line as she will need ferry terminal supervisor IV abx x 6 weeks. Per discussion with the surgery team, no plan for snf suppression at this time. - cbc w/diff, [...] Date Resolved Date COVID-19 virus infection 07/25/202201/2023 USP current use of antibiotics 11/30/2018 12/30/2020 Assessment & Plan (11/30/2018 2:07 PM CDT): - Weekly CBC and LFTs; twice weekly vanc trough and BMP while on IV antibiotics - Discussed with patient the side effects of snf antibiotics and monitoring parameters. - PICC line care continued; removed PICC when IV antibiotics are complete. Tingling of skin 08/03/2012 11/17/2022 Immunizations Name Administration Dates Next Due COVID-19 [...] Ba.1 12/26/2022 Tdap 03/19/2018 ZOSTER Recombinant 02/25/2023,12/26/2022 Social History Tobacco Use Types Packs/Day Years [...] on file Legal Sex Female 7:37 PM NURSING STAFFING COORDINATOR Gender Identity Female 05/15/2021 12:01 AM NURSING STAFFING COORDINATOR Sexual Orientation Not on file Occupation Industry Job Start Date Job End Date SELF EMPLOYED Not on file Not on file Not on file Last Filed Vital Signs Vital Sign Reading Time Taken Comments Blood Pressure 140/81 03/06/2024 2:10 PM NURSING STAFFING COORDINATOR Pulse 77 03/06/2024 2:10 PM NURSING STAFFING COORDINATOR Temperature 36.3 C (97.3 F) 03/06/2024 2:10 PM NURSING STAFFING COORDINATOR Respiratory Rate 18 03/06/2024 2:10 PM NURSING STAFFING COORDINATOR Oxygen Saturation 100% 03/06/2024 2:10 PM NURSING STAFFING COORDINATOR Inhaled Oxygen Concentration - - Weight 52.8 kg (116 lb 8 oz) 02/28/2024 10:51 AM NURSING STAFFING COORDINATOR Height 155.6 cm (5' 1.25 ) 02/28/2024 10:[address] Body Mass Index 21.83 02/28/2024 10:51 AM NURSING STAFFING COORDINATOR Plan of Treatment Not on file Medical Devices Implanted Type Area News Producer Device Identifier Shelf Expiration Date Model / Serial / Lot Forearm Hardware Forearm Spinal Hardware Thoracic-Lum bar Spine L3-L5 Fusion- [id number] Implanted:03/10 (Quantity not on file) Lumbar-Sacra l Spine Procedures Procedure Name Priority Date/Time Associated Diagnosis Comments US BREAST LEFT LIMITED Schedule Routine, Read Routine (OP Routine) 05/13/2024 3:01 PM NURSING STAFFING COORDINATOR Abnormal mammogram of left breast DIAGNOSTIC MAMMOGRAM LEFT W ONIEL Schedule Routine, Read Routine (OP Routine) 05/13/2024 2:28 PM NURSING STAFFING COORDINATOR Abnormal mammogram of left breast SCREENING MAMMOGRAM BILATERAL W ONIEL Schedule Routine, Read Routine (OP Routine) 05/07/2024 11:25 AM NURSING STAFFING COORDINATOR Screening mammogram, encounter for LIPID PANEL Routine 02/29/2024 10:12 AM NURSING STAFFING COORDINATOR Mixed hyperlipidemia COMPREHENSIVE METABOLIC PANEL Routine 02/29/2024 10:12 AM NURSING STAFFING COORDINATOR Mixed hyperlipidemia CBC WITH AUTO DIFFERENTIAL Routine 02/29/2024 10:12 AM NURSING STAFFING COORDINATOR Mixed hyperlipidemia XR SHOULDER LEFT 2 OR MORE VIEWS Schedule Routine, Read Routine (OP Routine) 02/20/2024 2:42 PM NURSING STAFFING COORDINATOR Acute pain of left shoulder DEXA TBS AXIAL SKELETON BONE DENSITY 1 OR MORE SITES Schedule Routine, Read Routine (OP Routine) 01/25/2023 11:30 AM CDT Age-related osteoporosis without current pathological fracture from Last 3 Months or Most Recently Relevant to Health Maintenance Results * US Breast Left Limited (05/13/2024 3:01 PM NURSING STAFFING COORDINATOR) Anatomical Region Laterality Modality Breast Left Ultrasound 05/13/2024 5:11 PM NURSING STAFFING COORDINATOR Impressions 05/13/2024 5:11 PM NURSING STAFFING COORDINATOR The questioned area on the mammogram very likely relates to the dilated ducts seen sonographically. Six-month follow-up left mammogram with possible left breast ultrasound is recommended. OVERALL FINAL ASSESSMENT: BI-RADS 3 - Probably benign findings. Short-term follow-up is recommended. Electronically signed by: Patricia Carlisle M.D. Narrative 05/13/2024 5:11 PM NURSING STAFFING COORDINATOR EXAMINATION: LEFT DIGITAL DIAGNOSTIC MAMMOGRAM AND DIGITAL [...] appearance of ductal ectasia. Adalberto Wood MD [facility] MAMMO PROCEDURES Final Re sult * Diagnostic Mammogram Left W Oniel (05/13/2024 2:28 PM NURSING STAFFING COORDINATOR) Anatomical Region Laterality Modality Breast Left Mammography 05/13/2024 5:11 PM NURSING STAFFING COORDINATOR Impressions 05/13/2024 5:11 PM NURSING STAFFING COORDINATOR The questioned area on the mammogram very likely relates to the dilated ducts seen sonographically. Six-month follow-up left mammogram with possible left breast ultrasound is recommended. OVERALL FINAL ASSESSMENT: BI-RADS 3 - Probably benign findings. Short-term follow-up is recommended. Electronically signed by: Patricia Carlisle M.D. Narrative 05/13/2024 5:11 PM NURSING STAFFING COORDINATOR EXAMINATION: LEFT DIGITAL DIAGNOSTIC MAMMOGRAM AND DIGITAL [...] appearance of ductal ectasia. Adalberto Wood MD [facility] MAMMO PROCEDURES Final Re sult * (ABNORMAL) Screening Mammogram Bilateral W Oniel (05/07/2024 11:25 AM NURSING STAFFING COORDINATOR) Anatomical Region Laterality Modality Breast Bilateral Mammography Impressions 05/07/2024 12:07 PM NURSING STAFFING COORDINATOR BI-RADS ATLAS category (overall): 0 - Incomplete: [...] will be contacted. Narrative 05/07/2024 12:07 PM NURSING STAFFING COORDINATOR Screening Mammogram Bilateral W Oniel: 05/07/24 The [...] CBC with auto differential (02/29/2024 10:12 AM NURSING STAFFING COORDINATOR) WBC 7.7 3.8 - 10.8 Thousand/u L [...] 31.8(L) 32.0 - 36.0 g/dL [facility] Comment: For adults, a slight decrease in the calculated MCHC value (in the range of 30 to 32 g/dL) is most likely not clinically significant; however, it should be interpreted with caution in correlation with other red cell parameters and the patient's clinical condition. Rdw 12.4 11.0 - 15.0 % [facility] Platelets 211 140 - 400 Thousand/u L [facility] MPV 9.9 7.5 - 12.5 fL [facility] Neutrophils, abs 5,213 1,500 - 7,800 cells/uL [facility] Lymphocytes, abs 1,679 850 - 3,900 cells/uL [facility] Monocyte abs 647 200 - 950 cells/uL [facility] Eosinophils, abs 100 15 - 500 cells/uL [facility] Basophils, abs 62 0 - 200 cells/uL [facility] Neutrophils 67.7 % [facility] Lymphocyte pct 21.8 % [facility] Monocytes 8.4 % [facility] Eosinophils 1.3 % [facility] Basophils 0.8 % [facility] Blood 02/29/2024 10:1 2 AM NURSING STAFFING COORDINATOR 02/29/2024 10:13 AM NURSING STAFFING COORDINATOR us Adalberto Wood MD LAB BLOOD ORDERABLES Final Re sult [facility] [address] [place] [address] * Lipid panel (02/29/2024 10:12 AM NURSING STAFFING COORDINATOR) Pathologist [facility] Cholesterol 193 <200 mg/dL [facility] HDL 80 > OR = 50 mg/dL [facility] Triglycerides 93 <150 mg/dL [facility] LDL 94 mg/dL (calc) [facility] Comment: Reference range: <100 Desirable range <100 mg/dL for primary prevention; <70 mg/dL for patients with CHD or diabetic patients with > or = 2 CHD risk factors. LDL-C is now calculated using the Jomar-Rosales calculation, which is a validated novel method providing better accuracy than the Friedewald equation in the estimation of LDL-C. Jomar SS et al. LANA. 2013;310(19): 9273-4579 (http://education.[employer]/faq/NEE880) Chol/HDL ratio 2.4 <5.0 (calc) [facility] Non-HDL, (LDL+VLDL) 113 <130 mg/dL (calc) [facility] Comment: For patients with diabetes plus 1 major ASCVD risk factor, treating to a non-HDL-C goal of <100 mg/dL (LDL-C of <70 mg/dL) is considered a therapeutic option. Blood 02/29/2024 10:1 2 AM NURSING STAFFING COORDINATOR 02/29/2024 10:13 AM NURSING STAFFING COORDINATOR us Adalberto Wood MD LAB BLOOD ORDERABLES Final Re sult [facility] [address] [place] [address] * (ABNORMAL) Comprehensive metabolic panel (02/29/2024 10:12 AM NURSING STAFFING COORDINATOR) Glucose 94 65 - 99 mg/dL [facility] Comment: Fasting reference interval BUN 20 7 - 25 mg/dL [facility] Creatinine 0.73 0.60 - 1.00 mg/dL [facility] eGFR 88 > OR = 60 mL/min/1.7 3m2 [facility]ion[facility] BUN/creat ratio SEE NOTE: 6 - 22 (calc) [facility] Comment: Not Reported: BUN and Creatinine are within reference range. Sodium 139 135 - 146 mmol/L [facility] Potassium, pl 4.7 3.5 - 5.3 mmol/L [facility] Chloride 100 98 - 110 mmol/L [facility] CO2 31 20 - 32 mmol/L [facility] Calcium 10.5(H) 8.6 - 10.4 mg/dL [facility] Protein, sr 7.5 6.1 - 8.1 g/dL [facility] Albumin 4.6 3.6 - 5.1 g/dL [facility] GLOBULIN 2.9 1.9 - 3.7 g/dL (calc) [facility] Alb/glob ratio 1.6 1.0 - 2.5 (calc) [facility] Bilirubin, total 0.5 0.2 - 1.2 mg/dL [facility] Alk phos 36(L) 37 - 153 U/L [facility] AST 20 10 - 35 U/L [facility] ALT (SGPT) 16 6 - 29 U/L [facility] Blood 02/29/2024 10:1 2 AM NURSING STAFFING COORDINATOR 02/29/2024 10:13 AM NURSING STAFFING COORDINATOR us Adalberto Wood MD LAB BLOOD ORDERABLES Final Re sult [facility] [address] [place] [address] * XR Shoulder Left 2 or More Views (02/20/2024 2:42 PM NURSING STAFFING COORDINATOR) Anatomical Region Laterality Modality Upper Extremities, Shoulder Left Comp uted Radiography 02/23/2024 1:41 PM NURSING STAFFING COORDINATOR Narrative 02/23/2024 1:43 PM NURSING STAFFING COORDINATOR EXAM DESCRIPTION: XR SHOULDER LEFT 2 OR [...] by Jonah Reyes M.D. T: Report ID: [id number] Reading Location: [id number] Procedure Note Jonah Reyes MD - 02/23/2024 [...] by Jonah Reyes M.D. T: Report ID: [id number] Reading Location: [id number] Adalberto Wood MD IMG XR PROCEDURES Final Resul t * Dexa TBS Axial Skeleton Bone Density 1 or more sites (01/25/2023 11:30 AM CDT) Anatomical Region Laterality Modality Wrist, Body N/A Radiographic Justina ging Narrative 01/26/2023 9:50 AM CDT Patient Name: Dora Hogan Date of : 1955 Date of scan: 01/25/2023 Bone mineral density was performed on a iTherX Discovery Densitometer. Based on machine cross-calibration and [...] mineral density scan were prepared by Vandana Rahman)(CBDT) who is accredited by the International Society of Clinical Densitometry. The overall patient assessment and scan interpretation were performed by Kavita Armenta M.D. who is certified by the International Society of Clinical Densitometry. [id number] Kavita Armenta MD IMG DXA PROCEDURES Final Resu lt from Last 3 Months or Most Recently Relevant to Health Maintenance Insurance [facility] Advance Directives For more information, please contact: [phone] Documents on File Type Date Recorded Patient Optical Fabrication Technician Expl anation ADVANCE DIRECTIVE 12/31/2020 * Full Code (Latest Code Status on File) Date Activated Date Inactivated Comments 11/01/2018 2:32 PM 11/06/2018 8:28 PM Care Teams Brass Bobbin Winder Relationship Specialty Start Date End Date Adalberto Wood MD PCP - General Family Medicine 05/30/18
--- OUTSIDE RECORDS SUMMARY | 2024-05-20 12:24 | XMS_ITS | Clinical Summary ---
Author Organization [facility] Address [address] [place] [address] Care Team Providers Care Filter Tender Jelly Name Role Phone Adalberto Wood MD Primary Care Provider [phone] Allergies No known active allergies Social History Tobacco Use Types Packs/Day Years Used Date Smoking Tobacco: Never Assessed Comments Unknown Sex and Gender Information Value Date Recorded Sex Assigned at Not on file Legal Sex Female 7:22 PM CDT Gender Identity Not on file Sexual Orientation Not on file Last Filed Vital Signs Vital Sign Reading Time Taken Comments Blood Pressure 146/80 02/12/2023 5:08 PM FLEET SALESPERSON Pulse 78 02/12/2023 5:08 PM FLEET SALESPERSON Temperature 36.6 C (97.8 F) 02/12/2023 5:08 PM FLEET SALESPERSON Respiratory Rate 16 02/12/2023 5:08 PM FLEET SALESPERSON Oxygen Saturation 100% 02/12/2023 5:08 PM FLEET SALESPERSON Inhaled Oxygen Concentration - - Weight 51.7 kg (114 lb) 02/12/2023 5:08 PM FLEET SALESPERSON Height 154.9 cm (5' 1 ) 02/12/2023 5:08 PM FLEET SALESPERSON Body Mass Index 21.54 02/12/2023 5:08 PM FLEET SALESPERSON Plan of Treatment Health Maintenance Due Date Last Done Comments Colorectal Cancer Screening Colonoscopy (10 Years) 1955 Hepatitis C 1971 Mammogram Screening 1993 Annual Medicare Wellness Visit 2018 Pneumococcal Vaccine: 65+ Years (1 of 1 - PCV) 2018 Zoster Vaccines (2 of 2) 02/20/2023 12/26/2022 COVID-19 Vaccine ( season) 2023 12/26/2022, 12/17/2021, 01/29/2021 Influenza Adult (#1) 2024 01/08/2022, 12/24/2019, 01/02/2019, Additional history exists DTaP, Tdap and Td Vaccines (2 - Td or Tdap) 03/19/2028 03/19/2018 RSV Immunization or 60+ Years Completed 12/26/2022 Dexa Scan (General) Completed 01/25/2023 Meningococcal B Vaccine Aged Out No l onger eligible based on patient's age to complete this topic Meningococcal Vaccine Aged Out No paolo cait eligible based on patient's age to complete this topic RSV Immunizations Under 20 Months Aged Out No longer eligible based on patient's age to complete this topic Insurance [employer] Care Teams Filter Tender Jelly Relationship Specialty Start Date End Date Adalberto Wood MD [address] [address] PCP - General FAMILY PRACTICE 02/12/23
--- OUTSIDE RECORDS SUMMARY | 2024-05-20 12:24 | XMS_ITS | Encounter Summary ---
Author Organization [facility] Healthcare Address [address] [place] [address] Care Team Providers Care Business Development Representative Name Role Phone Adalberto Wood MD Primary Care Provider [phone] Sunita Maradiaga MA Unavailable Encounter Details Date Type Department Care Team (Late st Contact Info) Description 05/13/2020 Telephone [facility] Radiology [address] [place] [address] [place], MARY [address] [facility] [address] [place] [address] Social History Tobacco Use Types Packs/Day Years Used Date Smoking Tobacco: Former Cigarettes 1 4 1 975 - 1978 Smokeless Tobacco: Never Alcohol Use Standard Drinks/Week Comments Yes 0 (1 standard drink = 0.6 oz pur e alcohol) ONCE A WEEK Comments No Sex and Gender Information Value Date Recorded Sex Assigned at Not on file Legal Sex Female 7:37 PM MANAGER OF TRAINING Gender Identity Female 05/15/2021 12:01 AM MANAGER OF TRAINING Sexual Orientation Not on file Occupation Industry Job Start Date Job End Date SELF EMPLOYED Not on file Not on file Not on file documented as of this encounter Plan of Treatment Not on file documented as of this encounter Visit Diagnoses Not on filedocumented in this encounter Care Teams Business Development Representative Relationship Specialty Start Date End Date Adalberto Wood MD PCP - General Family Medicine 05/30/18 Sunita Maradiaga MA [address] [place] [address] [employer] Humanities And Languages Professor 11/14/22 11/14/22 documented as of this encounter
== END ==
LOC: ANHLAB 11:42
PROVIDERS: PCP Family Medicine; Visit Provider Plastic Surgery
DX: L90.5 Scar conditions and fibrosis of skin (principal)
CPT/HCPCS: 88305